=== PATIENT | female | born 1965 | race Caucasian/White ===

== ENCOUNTER 2019-05-03 19:25 | Emergency (ER) | payer OTHER ==
[~2019-05-03] VITALS: Ht 170.2 cm; Wt 54.4 kg
[2019-05-03 22:37] LABS: BASOPHILS 1.2 % (0.0-2.0); EOSINOPHILS 0.8 % (0.0-3.0); HEMATOCRIT 40.8 % (37.0-47.0); HEMOGLOBIN 13.6 gm/dL (12.0-15.0); LYMPHOCYTES 22.3 % (24.0-44.0); MCH 30.5 pg (26.0-34.0); MCHC 33.3 g/dL (28.0-37.0); MCV 91.7 fL (80.0-100.0); MONOCYTES 5.6 % (1.0-8.0); PLATELET COUNT 271 thou/uL (150-400); POLYS 70.1 % (36.0-66.0); RBC 4.45 mil/uL (4.20-5.00); RDW 14.3 % (10.5-14.5)
[2019-05-03 22:38] LABS: URINE BILIRUBIN NEGATIVE (Negative); URINE BLOOD 2+ (Negative); URINE CLARITY CLEAR; URINE COLOR YELLOW; URINE GLUCOSE-RANDOM* NEGATIVE (Negative); URINE KETONES 1+ (Negative); URINE LEUKOCYTES-REFLEX TRACE (Negative); URINE NITRITE-REFLEX NEGATIVE (Negative); URINE PROTEIN (DIPSTICK) NEGATIVE (Negative); URINE UROBILINOGEN 0.2 E.U./dl (0.2-1.0)
[2019-05-03 22:45] LABS: ANION GAP 11 mmol/L (7-16); BUN 11 mg/dL (7-18); CALCIUM 9.6 mg/dL (8.5-10.1); CHLORIDE 107 mmol/L (98-107); CO2 25 mmol/L (21-32); GLUCOSE 95 mg/dL (74-106); POTASSIUM 3.3 mmol/L (3.5-5.1); SODIUM 143 mmol/L (136-145)
[2019-05-03 22:50] LABS: BACTERIA-REFLEX None Seen /HPF (None Seen); FINE GRANULAR CASTS 0-3 Few /LPF (None Seen); MUCUS 0-3 Light strn/LPF (None Seen); SQUAMOUS 0-3 Few /LPF (0-3); URINE RBC 0-2 Rare /HPF (0-2); URINE WBC-REFLEX None Seen /HPF (0-5)
[2019-05-03 22:51] LABS: CRYSTALS None Seen /LPF (None Seen)
[2019-05-03 22:55] LABS: SGOT 15 U/L (15-37); SGPT 29 U/L (30-65); TOTAL BILIRUBIN 0.9 mg/dL (<0.1-1.0); TOTAL PROTEIN 7.3 g/dL (6.4-8.2); TROPONIN-I <0.06 ng/mL (<0.06)
[2019-05-03] MEDS ORDERED: VENTOLIN HFA 1818 GM INH (22:57)
[2019-05-03] MEDS ORDERED: BUTALB-APAP-CA1 EACH PO (22:57)
[2019-05-03 23:57] VITALS: BP 127/61
--- NOTE | 2019-05-06 08:35 | EKG ---
[place] [address] [facility] [employer] [address] ELECTROCARDIOGRAM REPORT Name: CIPRIANO ALICEA Room #: [facility]#: [id number] ������������������ Admission: 05/03/19 ������������������ Attend Phys: Discharge: 05/04/19 ������������������ Date of : 61 Report #: [id number] ����������������������������������������������������������������� [id number] THIS REPORT FOR: //name// [facility] ED Test Date: 2019-05-03 Test Time: 21:55:22 Pat Name: CIPRIANO ALICEA Department: Room: Gender: F Apns: NOY : 1965 Requested By: Steven Chapin Order Number: [id number] MD: Christopher Alas Measurements Intervals [place] Rate: 63 P: 80 ND: 135 QRS: 72 QRSD: 85 T: 69 QT: 442 QTc: 453 Interpretive Statements Sinus rhythm RSR' in V1 or V2, right VCD nonspecific ST segment abnormality No previous ECG available for comparison Electronically Signed On 05-06-2019 8:35:00 CDT by Christopher Alas [email or web address] ��������������������������������������������� <ELECTRONICALLY SIGNED> ���������������������������������������� By: Christopher Alas MD, [facility] ��������������������������������������������� 05/06/19 0835 D: 07/2154 54 Christopher Alas MD, FACC /EPI
== END 2019-05-04 | disposition home or self-care (01) ==
LOC: ER 19:25
PROVIDERS: Emergency Medicine
DX: E86.0 Dehydration (principal); T67.5XXA Heat exhaustion, unspecified, initial encounter; R06.02 Shortness of breath; R19.7 Diarrhea, unspecified; R51 Headache; F17.210 Nicotine dependence, cigarettes, uncomplicated; Z88.0 Allergy status to penicillin; Y92.89 Other specified places as the place of occurrence of the external cause

== ENCOUNTER 2019-06-13 20:59 | Emergency (ER) | payer OTHER ==
[~2019-06-13] VITALS: Ht 170.2 cm; Wt 54.4 kg
[~2019-06-13 20:59] MED LIST: BUTALB-APAP-CA1 EACH PO; VENTOLIN HFA 1818 GM INH
[2019-06-13 21:50] LABS: ABSOLUTE NEUTROPHILS 6.5 thou/uL (1.4-8.2); BASOPHILS 0.5 % (0.0-2.0); EOSINOPHILS 0.4 % (0.0-3.0); HEMATOCRIT 41.6 % (37.0-47.0); HEMOGLOBIN 13.8 gm/dL (12.0-15.0); LYMPHOCYTES 9.8 % (24.0-44.0); MCH 30.6 pg (26.0-34.0); MCHC 33.3 g/dL (28.0-37.0); MONOCYTES 4.2 % (1.0-8.0); PLATELET COUNT 258 thou/uL (150-400); POLYS 85.1 % (36.0-66.0); RBC 4.52 mil/uL (4.20-5.00); RDW 13.8 % (10.5-14.5); WBC 7.6 thou/uL (4.0-11.0)
[2019-06-13 21:53] LABS: ANION GAP 14 mmol/L (7-16); BUN 11 mg/dL (7-18); CALCIUM 9.6 mg/dL (8.5-10.1); CHLORIDE 106 mmol/L (98-107); CO2 21 mmol/L (21-32); CREATININE 1.1 mg/dL (0.6-1.0); GLUCOSE 154 mg/dL (74-106); POTASSIUM 3.6 mmol/L (3.5-5.1); SODIUM 141 mmol/L (136-145)
[2019-06-13 22:03] LABS: TROPONIN-I <0.06 ng/mL (<0.06)
[2019-06-14 01:05] VITALS: BP 89/52
--- NOTE | 2019-06-14 14:45 | EKG ---
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
== END 2019-06-14 01:07 | disposition home or self-care (01) ==
LOC: ER 20:59
PROVIDERS: Emergency Medicine
DX: R20.2 Paresthesia of skin (principal); R06.00 Dyspnea, unspecified; F17.210 Nicotine dependence, cigarettes, uncomplicated; Z88.0 Allergy status to penicillin

== ENCOUNTER 2020-01-16 17:43 | Emergency (ER) | payer OTHER ==
[~2020-01-16] VITALS: Ht 170.2 cm; Wt 49.9 kg
[2020-01-16 18:21] LABS: ABSOLUTE NEUTROPHILS 5.2 thou/uL (1.4-8.2); BASOPHILS 1.2 % (0.0-2.0); EOSINOPHILS 1.8 % (0.0-3.0); HEMATOCRIT 40.1 % (37.0-47.0); HEMOGLOBIN 13.5 gm/dL (12.0-15.0); LYMPHOCYTES 19.1 % (24.0-44.0); MCH 30.7 pg (26.0-34.0); MCHC 33.6 g/dL (28.0-37.0); MCV 91.2 fL (80.0-100.0); MONOCYTES 6.2 % (1.0-8.0); PLATELET COUNT 248 thou/uL (150-400); POLYS 71.7 % (36.0-66.0); RBC 4.39 mil/uL (4.20-5.00); RDW 13.3 % (10.5-14.5); WBC 7.3 thou/uL (4.0-11.0)
[2020-01-16 18:31] LABS: ANION GAP 12 mmol/L (7-16); BUN 13 mg/dL (7-18); CALCIUM 9.9 mg/dL (8.5-10.1); CHLORIDE 104 mmol/L (98-107); CO2 23 mmol/L (21-32); GLUCOSE 113 mg/dL (74-106); POTASSIUM 3.7 mmol/L (3.5-5.1); SODIUM 139 mmol/L (136-145)
[2020-01-16 18:41] LABS: ALBUMIN 4.1 g/dL (3.4-5.0); SGOT 23 U/L (15-37); SGPT 33 U/L (30-65); TOTAL BILIRUBIN 1.1 mg/dL (<0.1-1.0); TOTAL PROTEIN 7.7 g/dL (6.4-8.2); TROPONIN-I <0.06 ng/mL (<0.06)
[2020-01-16 18:54] LABS: URINE BILIRUBIN NEGATIVE (Negative); URINE BLOOD TRACE (Negative); URINE CLARITY SL CLOUDY; URINE COLOR YELLOW; URINE GLUCOSE-RANDOM* NEGATIVE (Negative); URINE KETONES NEGATIVE (Negative); URINE LEUKOCYTES-REFLEX NEGATIVE (Negative); URINE NITRITE-REFLEX NEGATIVE (Negative); URINE PROTEIN (DIPSTICK) NEGATIVE (Negative); URINE UROBILINOGEN 0.2 E.U./dl (0.2-1.0)
[2020-01-16 19:13] LABS: MAGNESIUM 1.8 mg/dL (1.8-2.4)
[2020-01-16] MEDS ORDERED: ONDANSETRON ODT8 MG PO (19:35)
[2020-01-16 19:53] VITALS: BP 124/70
--- NOTE | 2020-01-17 08:40 | EKG ---
[facility] [place] [address] ELECTROCARDIOGRAM REPORT Name: DEANNEKIMBERLEYCIPRIANO Duke Room #: [facility]#: [id number] Admission: 01/16/20 Attend Phys: Discharge: 01/16/20 Date of : 61 Report #: [id number] THIS REPORT FOR: cc: Pancho Clarke Louis D. DO Couchonnal, Luis F. MD ~ THIS REPORT FOR: //name// [facility] ED Test Date: 2020-01-16 Test Time: 17:59:54 Pat Name: CIPRIANO ALICEA Department: Room: Gender: F Rn Clinical Research: FRANK : 1965 Requested By: Steven Chapin Order Number: [id number] MD: Chi Campos Measurements Intervals [place] Rate: 59 P: 80 CT: 129 QRS: 57 QRSD: 121 T: 47 QT: 409 QTc: 406 Interpretive Statements Sinus rhythm Nonspecific intraventricular conduction delay Compared to ECG 06/13/2019 22:01:47 Intraventricular conduction delay now present Electronically Signed On 01-17-2020 8:38:50 CDT by Chi Campos [email or web address] <ELECTRONICALLY SIGNED> By: Chi Campos MD 01/17/20 0838 1759 1759 Chi Campos MD /EPI
== END 2020-01-16 19:54 | disposition home or self-care (01) ==
LOC: ER 17:43
PROVIDERS: Emergency Medicine
DX: R42 Dizziness and giddiness (principal); R00.2 Palpitations; R53.83 Other fatigue; R19.7 Diarrhea, unspecified; R11.0 Nausea; R25.1 Tremor, unspecified; F17.210 Nicotine dependence, cigarettes, uncomplicated; Z88.0 Allergy status to penicillin

== ENCOUNTER 2020-02-15 13:12 | Emergency (ER) | payer OTHER ==
[~2020-02-15] VITALS: Ht 170.2 cm; Wt 49.0 kg
[~2020-02-15 13:12] MED LIST changes: +ONDANSETRON ODT8 MG PO
[2020-02-15] MEDS ORDERED: SERTRALINE HCL100 MG PO (13:45)
[2020-02-15] MEDS ORDERED: VITAMIN D310 MCG PO (13:46)
[2020-02-15 14:29] LABS: BASOPHILS 0.9 % (0.0-2.0); HEMATOCRIT 42.6 % (37.0-47.0); HEMOGLOBIN 14.4 gm/dL (12.0-15.0); LYMPHOCYTES 21.7 % (24.0-44.0); MCH 30.4 pg (26.0-34.0); MCHC 33.7 g/dL (28.0-37.0); MCV 90.4 fL (80.0-100.0); MONOCYTES 7.3 % (1.0-8.0); PLATELET COUNT 306 thou/uL (150-400); POLYS 69.1 % (36.0-66.0); RBC 4.72 mil/uL (4.20-5.00); RDW 12.9 % (10.5-14.5); WBC 7.2 thou/uL (4.0-11.0)
[2020-02-15 14:37] LABS: ANION GAP 13 mmol/L (7-16); BUN 13 mg/dL (7-18); CALCIUM 9.6 mg/dL (8.5-10.1); CHLORIDE 105 mmol/L (98-107); CO2 22 mmol/L (21-32); CREATININE 1.1 mg/dL (0.6-1.0); GLUCOSE 103 mg/dL (74-106); POTASSIUM 3.6 mmol/L (3.5-5.1); SODIUM 140 mmol/L (136-145)
[2020-02-15 14:42] LABS: URINE BILIRUBIN NEGATIVE (Negative); URINE BLOOD TRACE (Negative); URINE CLARITY CLEAR; URINE COLOR YELLOW; URINE GLUCOSE-RANDOM* NEGATIVE (Negative); URINE KETONES TRACE (Negative); URINE LEUKOCYTES-REFLEX NEGATIVE (Negative); URINE NITRITE-REFLEX NEGATIVE (Negative); URINE PROTEIN (DIPSTICK) NEGATIVE (Negative); URINE UROBILINOGEN 0.2 E.U./dl (0.2-1.0)
[2020-02-15 14:47] LABS: ALBUMIN 4.1 g/dL (3.4-5.0); LIPASE 118 U/L (73-393); MAGNESIUM 1.8 mg/dL (1.8-2.4); SGOT 20 U/L (15-37); SGPT 23 U/L (30-65); TOTAL PROTEIN 7.7 g/dL (6.4-8.2); TROPONIN-I <0.06 ng/mL (<0.06)
[2020-02-15] MEDS ORDERED: PEPCID20 MG PO (16:53)
[2020-02-15] MEDS ORDERED: MAGNESIUM250 M1 PO (16:55)
[2020-02-15 17:06] VITALS: BP 116/71
--- NOTE | 2020-02-16 10:18 | EKG ---
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 02/16/20 1016 1430 1430 Christopher Alas MD, [facility] /EPI
--- NOTE | 2020-02-16 10:19 | EKG ---
[facility] [address] ELECTROCARDIOGRAM REPORT Name: CIPRIANO ALICEA Room #: 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1965 Requested By: Antonieta Cole Order Number: [id number] MD: Christopher Alas Measurements Intervals [place] Rate: 60 P: 81 [place]: 120 QRS: 72 QRSD: 84 T: 58 QT: 410 QTc: 410 Interpretive Statements Sinus rhythm RSR' in V1 or V2, right VCD Compared to ECG 01/16/2020 17:59:54 No significant change was found Electronically Signed On 02-16-2020 10:17:13 CDT by Christopher Alas [email or web address] <ELECTRONICALLY SIGNED> By: Christopher Alas MD, FACC 02/16/20 1017 1431 1431 Christopher Alas MD, [facility] /EPI
== END 2020-02-15 17:16 | disposition home or self-care (01) ==
LOC: ER 13:12
PROVIDERS: Emergency Medicine Emergency Medical Services
DX: R53.1 Weakness (principal); R63.4 Abnormal weight loss; R20.0 Anesthesia of skin; R25.1 Tremor, unspecified; F17.210 Nicotine dependence, cigarettes, uncomplicated; Z79.899 Other long term (current) drug therapy; Z88.0 Allergy status to penicillin

== ENCOUNTER 2020-05-25 11:23 | Emergency (ER) | payer OTHER ==
[~2020-05-25] VITALS: Ht 170.2 cm; Wt 52.2 kg
[~2020-05-25 11:23] MED LIST changes: +MAGNESIUM250 M1 PO; +PEPCID20 MG PO; +SERTRALINE HCL100 MG PO; +VITAMIN D310 MCG PO
[2020-05-25 12:45] LABS: ABSOLUTE NEUTROPHILS 5.4 thou/uL (1.4-8.2); BASOPHILS 0.7 % (0.0-2.0); EOSINOPHILS 0.5 % (0.0-3.0); HEMATOCRIT 44.5 % (37.0-47.0); HEMOGLOBIN 15.1 gm/dL (12.0-15.0); LYMPHOCYTES 20.6 % (24.0-44.0); MCH 30.3 pg (26.0-34.0); MCV 88.9 fL (80.0-100.0); MONOCYTES 6.2 % (1.0-8.0); PLATELET COUNT 281 thou/uL (150-400); RDW 13.3 % (10.5-14.5); WBC 7.4 thou/uL (4.0-11.0)
[2020-05-25 13:01] LABS: ANION GAP 15 mmol/L (7-16); BUN 13 mg/dL (7-18); CALCIUM 10.4 mg/dL (8.5-10.1); CHLORIDE 105 mmol/L (98-107); CO2 22 mmol/L (21-32); CREATININE 1.1 mg/dL (0.6-1.0); GLUCOSE 91 mg/dL (74-106); POTASSIUM 3.9 mmol/L (3.5-5.1); SODIUM 142 mmol/L (136-145)
[2020-05-25 13:02] LABS: MAGNESIUM 1.7 mg/dL (1.8-2.4); PHOSPHORUS 2.3 mg/dL (2.5-4.9)
[2020-05-25 13:13] LABS: ALBUMIN 4.4 g/dL (3.4-5.0); SGOT 20 U/L (15-37); SGPT 23 U/L (30-65); TOTAL BILIRUBIN 1.4 mg/dL (0.2-1.0); TOTAL PROTEIN 8.4 g/dL (6.4-8.2); TROPONIN-I <0.06 ng/mL (<0.06)
[2020-05-25 13:55] LABS: URINE BILIRUBIN NEGATIVE (Negative); URINE BLOOD TRACE (Negative); URINE CLARITY CLEAR; URINE COLOR YELLOW; URINE GLUCOSE-RANDOM* NEGATIVE (Negative); URINE KETONES 2+ (Negative); URINE LEUKOCYTES-REFLEX NEGATIVE (Negative); URINE NITRITE-REFLEX NEGATIVE (Negative); URINE PROTEIN (DIPSTICK) NEGATIVE (Negative); URINE UROBILINOGEN 0.2 E.U./dl (0.2-1.0)
[2020-05-25 15:12] VITALS: BP 124/64
--- NOTE | 2020-05-26 16:03 | EKG ---
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
== END 2020-05-25 15:13 | disposition home or self-care (01) ==
LOC: ER 11:23
PROVIDERS: Physician Assistant; Student in an Organized Health Care Education/Training Program
DX: E83.42 Hypomagnesemia (principal); E86.0 Dehydration; Z20.828 Contact with and (suspected) exposure to other viral communicable diseases; R53.1 Weakness; R63.0 Anorexia; Z79.899 Other long term (current) drug therapy; Z88.0 Allergy status to penicillin; Z87.891 Personal history of nicotine dependence